=== PATIENT | male | born 1975 | race African-American/Black ===

== ENCOUNTER 2020-09-19 01:40 | Emergency (ER) | payer SELFPAY ==
[~2020-09-19] VITALS: Ht 185.4 cm; Wt 115.0 kg
[2020-09-19] MEDS ORDERED: KETOROLAC 60MG/2ML VIAL IM ONE (02:45)
[2020-09-19 03:39] VITALS: BP 135/69
== END 2020-09-19 03:40 | disposition home or self-care (01) ==
LOC: ER 01:45
DX: M25.562 Pain in left knee (principal); F17.210 Nicotine dependence, cigarettes, uncomplicated; Z98.890 Other specified postprocedural states
CPT/HCPCS: 73562; 99283; J1885; L1830; Z7610